=== PATIENT | male | born 1960 | race African-American/Black ===

== ENCOUNTER 2016-04-19 14:38 | Emergency (ER) | payer OTHER ==
[~2016-04-19] VITALS: Ht 193 cm; Wt 120.5 kg
[2016-04-19] MEDS ORDERED: FLEXERIL10 MG PO (17:29)
[2016-04-19] MEDS ORDERED: PERCOCET 5/31 TABLET PO (17:29)
[2016-04-19 17:53] VITALS: BP 145/90
== END 2016-04-19 17:55 | disposition home or self-care (01) ==
LOC: EME 14:38
DX: S06.0X9A Concussion with loss of consciousness of unspecified duration, initial encounter (principal); Y99.0 Civilian activity done for income or pay; W22.8XXA Striking against or struck by other objects, initial encounter
CPT/HCPCS: 70450; 72125; 99281; 99284